=== PATIENT | female | born 1960 | race Caucasian/White ===

== ENCOUNTER → 2024-02-17 | Outpatient (CLI) | payer OTHER, BC, SELFPAY ==
--- NOTE | 2024-02-17 14:50 | BI_ITS ---
MAMMOGRAPHY - BILATERAL SCREENING 3-D TOMOSYNTHESIS REASON FOR EXAM: Female, 63 years old. SCREENING PERTINENT HISTORY: No significant family history. TECHNIQUE: 2-D mammograms and 3-D Tomosynthesis of the breast (s) were performed. CAD was performed. COMPARISON: None. FINDINGS: The breast composition is heterogeneously dense that can obscure small breast masses. Scattered benign calcifications are seen. No dominant mass right breast. 1 cm oval obscured equal density mass in the upper outer quadrant left breast at mid depth and focal compression views recommended for further evaluation. No suspicious calcifications.. No architectural distortion is identified. There is no skin thickening or retraction. BI/SCRN MAMM (CAD)W/SABINA BILAT IMPRESSION: Further imaging evaluation is recommended. ASSESSMENT CATEGORY: BIRADS Category 0: Incomplete. Need additional imaging evaluation as above. A letter regarding these results will be sent to the patient by the facility within 30 days. FOLLOW UP RECOMMENDATION: Additional imaging recommended as above. (E) Approximately 10% of breast cancers are not detected by mammography. A normal mammogram should not delay biopsy of a clinically suspicious abnormality. Electronically Signed: Gamal Blackburn MD at 16:12 EDT ,
== END | disposition home or self-care (01) ==
PROVIDERS: Referring Provider Nurse Practitioner; Visit Provider Nurse Practitioner
DX: Z12.31 Encounter for screening mammogram for malignant neoplasm of breast (principal)
CPT/HCPCS: 77063; 77067

== ENCOUNTER → 2024-02-19 | Outpatient (CLI) | payer OTHER, BC, SELFPAY ==
--- NOTE | 2024-02-19 09:19 | US_ITS ---
STUDY: ULTRASOUND BREAST - LEFT REASON FOR EXAM: Female, 63 years old. Abnormal screening mammogram. TECHNIQUE: Axial and longitudinal images of the LEFT breast were performed with a high resolution ultrasound transducer. # OF IMAGES: 27 COMPARISON: Diagnostic mammogram earlier today, screening mammogram 02/17/2024 FINDINGS: LEFT Breast: Heterogeneous background echotexture. At 1:00, 1 cm from the nipple, ultrasound confirms a 1.2 cm irregular parallel Microlite hypoechoic mass with no posterior features not consistent with a simple cyst and therefore ultrasound-guided vacuum-assisted core biopsy is recommended.: US/Breast Limited Unilateral IMPRESSION: Ultrasound confirms a 1.2 cm irregular hypoechoic mass and ultrasound-guided vacuum-assisted core biopsy is recommended. ASSESSMENT CATEGORY: BIRADS Category 4: Suspicious. Biopsy Should Be Considered. A letter regarding these results will be sent to the patient by the facility within 30 days. Electronically Signed: Gamal Blackburn MD at 10:34 EDT ,
--- NOTE | 2024-02-19 09:19 | BI_ITS ---
MAMMOGRAPHY - UNILATERAL DIAGNOSTIC: LEFT BREAST REASON FOR EXAM: Female, 63 years old. DENSITY PERTINENT HISTORY: Non-contributory. TECHNIQUE: Digital examination. Mediolateral oblique (MLO) and craniocaudad (CC) views of the breast were obtained. CAD: CAD was not performed on this study. COMPARISON: 02/17/2024 FINDINGS: Breast Composition: The breasts are heterogeneously dense, which may obscure small masses. Focal compression views confirm a 1 cm oval obscured equal density mass in the upper outer quadrant left breast at mid depth and ultrasound is recommended for further evaluation. No other significant abnormalities are identified. BI/DIAG MAMM W/CAD, UNILAT IMPRESSION: Further ultrasonographic evaluation recommended, as described above. ASSESSMENT CATEGORY: BIRADS Category 0: Incomplete. Need additional imaging evaluation. A letter regarding these results will be sent to the patient by the facility within 30 days. FOLLOW-UP RECOMMENDATION: Ultrasound recommended. (I) Approximately 10% of breast cancers are not detected by mammography. A normal mammogram should not delay biopsy of a clinically suspicious abnormality. Electronically Signed: Gamal Blackburn MD at 9:42 EDT ,
== END | disposition home or self-care (01) ==
LOC: OPBI 09:17
PROVIDERS: Referring Provider Nurse Practitioner; Visit Provider Nurse Practitioner
DX: R92.8 Other abnormal and inconclusive findings on diagnostic imaging of breast (principal)
CPT/HCPCS: 76642; 77065

== ENCOUNTER → 2024-02-21 | Outpatient (CLI) | payer OTHER, BC, SELFPAY ==
--- NOTE | 2024-02-21 | IMM_PTH ---
PATIENT: MACHO CONN LOC: [facility] U#:[id number] AGE/SX: 63/F ROOM: RE02/21/[address]: Dr. Fred Lopez MD : 1960 BED: DIS: 02/21/2024 SPEC #: [id number] RECD: 02/26/24 12:17 STATUS: SOUViv REQ #: [id number] BLAS: 02/21/24 00:[address]: Fred Lopez DEPT: IMMUNOHISTOCHEMISTRY RECD BY: Betito Zacarias ENTERED: 02/26/24 12:18 SP TYPE: IMMUNO OTHR DR: No Primary Care Phys Tissues: Breast, NOS Procedures: P53 (initial) CALPONIN-1 (add) CK5-6 (add) CK8 (add) E-CAD (add) HER2 RAYRAY (add) KI-67 (add) NM (add) P40 (add) MOC-31 (add) ER (initial) PHYSICIAN & INSTITUTION [address] [address] SPECIMEN INFORMATION: Tissue Source: Left breast mass tissue Clinical Info: Left breast mass Specimen Number: [id number] CPT code: 65411,68330q3, METHODOLOGY: Deparaffinized sections of prefer/formalin-fixed tissue or PAP/DQ stained slides are incubated with monoclonal/polyclonal antibodies/oligonucleotide probes. Localization is made via biotin free immunoperoxidase method. Appropriate controls are performed and reacted as expected. Results on target cell population are indicated in the following table: RESULTS: ANTIBODY / CLONE RESULT P53 (DO-7) negative, null pattern Ki-67 (30-9) positive, 15% CK8 (33kdneE08) positive CK5-6 (D5 & 1684) negative Calponin-1 (HL564M) negative P40 (BC28) negative E-Cad (ECH-6) positive MOC-31 (4561) positive, dim MORPHOMETRIC ANALYSIS ER (clone 6F11) >95%, strong intensity NM (clone 16/1E2) >95%, strong intensity Her-2Neu (clone CB11) 2+ IN SITU HYBRIDIZATION (PRINCESS) FOR HER2 Interpretation: Not Amplified HER2 : CEP-17 Ratio: 1.2 Average HER2 Signal: 1.95 Average CEP-17 Signal: 1.65 Number of Tumor Cells Scanned: 50 Interpretative Information: The INFORM HER2 Dual PRINCESS DNA Probe Cocktail assay is performed on formalin-fixed paraffin embedded tissue and determines HER2 gene status by detecting HER2 copies via silver in situ hybridization (SISH) and Chromosome 17 copies via chromogenic red in situ hybridization on tumor cells. A minimum of 20 cells representing > 10% of contiguous and homogeneous invasive tumor cells were analyzed. HER2 gene status is classified as Non-amplified (HER2/Chr17 ratio < 2.0) or Amplified (HER2/Chr17 ratio greater than or equal to 2.0). If the resulting HER2/Chr17 ratio falls within 1.8 - 2.2 (Borderline), retesting by FISH is recommended. Reference: Car AC, Hernan SYBIL, Mary DG, et al: Recommendations for Human Epidermal Growth Factor Receptor 2 Testing in Breast Cancer: [place] [employer] On[employer] / [employer] [place] [employer] Clinical Practice Guideline Update. J Clin Oncol 31:4907-1778, 2013. The prognostic test for HER2 is performed on formalin-fixed paraffin embedded tissue. A 3+ (positive) staining pattern is defined as intense, homogeneous, complete, circumferential membranous staining in >10% of contiguous tumor cells. A similar weak (2+) staining pattern is interpreted as equivocal. PRINCESS follow-up testing is recommended for all equivocal cases. Positivity/negativity for ER/NM is reported if > or < 1% of the tumor cells are immuno- reactive, respectively. The ASCO/CAP criteria is used for scoring. Reference: Journal of Clinical Oncology, 2013; 31:9009-7469 & 2010; 16:0142-4384. Ischemic time: Less than one hour. Duration of fixation: 6.5 Hrs; Sample Adequate: Yes. These assays have not been validated on decalcified tissues. Results should be interpreted with caution given the likelihood of false negativity on decalcified specimens or fixation greater than 72 hours. Alternative testing methods (FISH/dualISH for Her2; gene expression for ER) are recommended, if applicable. Please notify the laboratory if additional testing is required. These tests were developed and their performance characteristics determined by [facility]. They may not have been cleared or approved by the U.[place]. Food and Drug Administration. The FDA has determined that such clearance or approval is not necessary. The above immunohistochemical/dualISH markers are ordered and reviewed by the Pathologist. 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 Positive for estrogen receptors (favorable prognostic indicator). Positive for progesterone receptors (favorable prognostic indicator). Negative for overexpression of [id number]. AM/mr 02/28/2024
--- NOTE | 2024-02-21 13:00 | BRBX_PTH ---
PATIENT: MACHO CONN LOC: [facility] U#:[id number] AGE/SX: 63/F ROOM: RE02/21/[address]: Dr. Fred Lopez MD : 1960 BED: DIS: 02/21/2024 SPEC #: [id number] RECD: 02/21/24 15:06 STATUS: XIAO JANELReji #: [id number] BLAS: 02/21/24 13:[address]: Fred Lopez DEPT: SURGICAL PATHOLOGY RECD BY: Tayler Miller ENTERED: 02/25/24 09:36 SP TYPE: BREAST BX OTHR DR: No Primary Care Phys Tissues: Left breast, NOS Procedures: Surgery Specimen Level IV HEADER OPERATION: Biopsy of left breast mass PRE-OP DIAGNOSIS: Left breast mass TISSUE SUBMITTED: Left breast mass tissue MICROSCOPIC DIAGNOSIS Left breast mass, core biopsy: Invasive ductal carcinoma. See synoptic report below. JORDAN/ 02/26/2024 COMMENT INVASIVE BREAST CANCER SUMMARY: Procedure: Needle core biopsy Specimen Laterality: Left breast Tumor site: Not specified Histologic type: Invasive ductal carcinoma Provisional Histologic grade: 2 Tubule Differentiation Score: 3 Nuclear Pleomorphism Score: 2 Mitotic Rate Score: 1 Tumor Size ( greatest dimension): 4.5mm Ductal Carcinoma Insitu: Not identified Angiolymphatic Invasion: Not identified Microcalcifications: Not identified Additional Findings: Fibrocystic change and focal intraductal hyperplasia without atypia Breast Marker Study: RF ER: positive (>95%) TX: positive (>95%) Her2:Equivocal (2+) Ki67:positive (15%) [id number]:1.2 (Negative/not amplified) PATHOLOGIC STAGE: Not applicable The above summary is in compliance with [employer] [place] [employer] (CAP) Cancer Protocols Checklist and [place] [employer] Committee on Cancer (AJCC), Staging Manual, 8th Ed. Ischemic Time: 1 minute Fixation Time: 6.5 hours Immunohistochemistry ([id number]) supports the above diagnosis. MICROSCOPIC DESCRIPTION Slides are reviewed. GROSS DESCRIPTION Received in fixative is one container labeled with the patient's name and designated Left breast. The specimen consists of multiple irregular fragments of yellow-white soft tissue measuring in aggregate 2.5 x 1.6 x 0.2cm. The specimen is totally submitted in one cassette. JORDAN/ 02/25/2024 TC:0 CPT:69654
== END | disposition home or self-care (01) ==
LOC: LABSPEC 15:22
PROVIDERS: Referring Provider Surgery; Visit Provider Surgery
DX: C50.912 Malignant neoplasm of unspecified site of left female breast (principal); Z17.0 Estrogen receptor positive status [ER+]
CPT/HCPCS: 81002; 88305; 88341; 88342